=== PATIENT | male | born 1955 | race African-American/Black ===

== ENCOUNTER 2024-07-29 10:54 | Day surgery (SDC) | payer BC, SELFPAY ==
[2024-07-29] VITALS (10 sets, daily range): BP systolic 122–175; BP diastolic 66–94; BMI 23.5
[2024-07-29 12:04] LABS: ALT (SGPT) 18 U/L (0-50); AST (SGOT) 28 U/L (17-59); Albumin 4.8 g/dl (3.5-5.0); Alkaline Phosphatase 65 U/L (38-126); Blood Urea Nitrogen 15 mg/dl (9-20); Calcium 9.7 mg/dl (8.4-10.2); Carbon Dioxide 29 mmol/L (22-30); Chloride 104 mmol/L (98-107); Estimated Creatinine Clearance 70 ml/min; Glucose 95 mg/dl (70-99); Potassium 3.9 mmol/L (3.5-5.1); Sodium 141 mmol/L (135-145); Total Bilirubin 0.9 mg/dl (0.2-1.3); eGFR > 60.00
[2024-07-29 12:20] LABS: Hematocrit 44.5 % (39.0-52.0); Hemoglobin 14.8 g/dL (13.0-18.0); Mean Corp Hgb Conc. 33.3 g/dL (33.0-37.0); Mean Corpuscular Hgb 27.1 pg (27.0-31.0); Mean Corpuscular Volume 81.4 fL (80.0-94.0); Platelet Count 140 10^3/uL (130-400); Red Blood Cell Count 5.47 10^6/uL (4.70-6.10); Red Cell Dist. Width 13.7 % (11.5-14.5); White Blood Cell Count 3.3 10^3/uL (4.8-10.8)
--- NOTE | 2024-07-29 14:18 | ITS.CL.ABL ---
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
Ablation
Procedure Report:
ELECTROPHYSIOLOGY ABLATION REPORT
Date of Procedure: July 29, 2024
Referring: Dr. Mansoor Jamil
INDICATION: History of syncope which by history sounds vasovagal although he was noted to have an elevated PVC burden which is monomorphic and up to 17 beats of tachycardia which were identical to monomorphic PVCs on outpatient monitoring. Normal
ejection fraction by echocardiogram and as he has a stress test and an MRI scheduled for further evaluation.
HISTORY: Presents for EPS to look for sustained tachyarrhythmia and to diagnose site of origin of his PVC.
PROCEDURE:
After informed consent and patient safety timeout the patient was sedated by the anesthesiology service. There was some suppression of his PVCs with sedation requiring lightening of sedation as well as isoproterenol infusion. Under direct vascular
ultrasound guidance to 9 Liberian short sheaths were placed in the right femoral vein and a 5 Liberian short sheath in the right femoral artery which was upgraded to a 35 cm 9 Liberian braided sheath to the descending aorta. The 4 mm ablation catheter
which was irrigated was brought first up from the right femoral vein up into the right atrium for atrial pacing, His bundle recording from the right side and mapping of the right ventricle and right ventricular outflow tract for the clinical PVC.
The clinical PVC was left bundle left inferior with a transition at V2�V3 and somewhat similar to sinus rhythm but wider. We pace map the entire right ventricular outflow tract and only achieved an 84% match between pacing and the clinical
morphology. Activation mapping in the right ventricular outflow tract only achieved 0 to 5 ms pre-QRS particularly closer to the hiss bundle with an RS in the unipolar recording. This was at the area of 84% pace map matching. Intracardiac
ultrasound and 3D mapping were utilized. Intracardiac ultrasound demonstrated normal ejection fraction without pericardial effusion pre and post procedure. We also utilized intracardiac ultrasound to utilize mapping in the right ventricular
outflow tract and above the pulmonic valve and the pulmonary artery. We also utilized this for imaging of the right and left coronary artery trees and catheter position in each of the cusps and the left ventricular outflow tract conduction system.
���The activation map of the right ventricular outflow tract demonstrated a diffuse area of early activation but only 0 to 5 ms suggesting breakthrough from the anterior right ventricular flow tract in the conduction system region. Nonetheless we
then placed a 5 Liberian short sheath in the right femoral artery and upgraded that to a 9 Liberian mid length braided sheath to the descending aorta. We then brought the 4 mm tactic cath up in the pigtail confirmation and mapped the left ventricular
outflow tract below the aortic cusps as well as the aortic cups proper up to the coronary takeoffs. Interestingly there was no area of early activation in the aortic cusps or the left ventricular outflow tract or LV septum. The conduction system
was mapped and tagged showing an area of diffuse His bundle recording and Purkinje fibers and distal left bundle fibers were also tagged. Pacing at the earliest activation site which was 0 to 3 ms demonstrated a narrow PVC which was similar to the
clinical PVC but as stated before significantly or narrow. �Sheaths were placed and IV heparin bolus followed by continuous infusion to maintain ACT at 250-350 seconds.��The MARCELO catheter was positioned within the LV cavity using a retrograde aortic
approach.��The mapping/ablation catheter was then positioned in a similar fasion within the LV and the 3-D map was created first in SR. there was no electroanatomic voltage abnormality in either outflow tract or the left ventricle.��Given diffuse
activation which was relatively on time to the PVC from both sides of the septum and earliest activation from both the right and left sided hiss bundle no ablation was performed in this region as there is likely a mid myocardial focus within the
conduction system and would be high risk to perform ablation for PVC suppression in this region.
We then proceeded to EP study with pacing from the left ventricle at the septal aspect and the lateral aspect towards the base. �Baseline measurements were obtained.��Programmed stimulation was performed.��Pacing from the RVA was performed.��One,
two, and triple extrastimuli were performed from the LV outflow tract and LV septum. �Burst pacing was also performed from the RVA.� The patient was noninducible for any sustained tachyarrhythmia.
COMPLICATIONS: None
SUMMARY: Mid myocardial PVC focus from the proximal conduction system. Noninducible for sustained ventricular tachycardia. Normal ejection fraction intracardiac ultrasound
RECOMMENDATIONS:
1. The patient will get a stress test through Dr. Jamil's office. We have him scheduled for an outpatient cardiac MRI to look for any myocardial scar. We will place him on low-dose Toprol 12.5 mg XL daily to see if he can tolerate and to see if
we have some PVC suppression
2. Will consider outpatient ILR implant if his MRI is unrevealing and if he is noted to have significant myocardial scar plus unexplained syncope then would consider ICD implantation. I will have a discussion with him after testing regarding next
steps.
Copy to: Dr. Mansoor Jamil
--- NOTE | 2024-07-29 15:31 | PTCARENOTE ---
Pt AOx3, no complaints of pain or discomfort. Educated on expected OOB time and bedrest protocols. Oriented to room and unit. Right groin CDI. VSS, call ny within reach.
--- NOTE | 2024-07-29 15:50 | CM ---
Reviewed chart. Met with Mr. Green to review discharge plans. He states prior to admission he reside alone in a spilt level home with ten steps to enter. He states a friend from [place] is staying with him. He states he has three steps to get
to the main area and then four steps to get to bedroom/full bathroom. He states prior to admission he was independent with ambulation and adls. He states he does not have any DME in the home. He states he has a prescription plan and uses [facility]. The discharge plan is to return home when medically stable.
[2024-07-29] MEDS: RESTASIS 0.05% OPHTHALMIC EMULSION 2 DROPS OPHTH (22:32)
[2024-07-29] MEDS: NORVASC 5 MG PO (22:32)
--- NOTE | 2024-07-30 03:00 | PTCARENOTE ---
Pt received at change of shift. NSR on tele with HR 60s. R fem site with small amount of old drainage on dressing unchanged from previous shift, no complications noted. Pt denies CP or dizziness. Ambulating independently in room without
difficulty. Plan of care discussed and pt verbalizes understanding. Call ny within reach.
[2024-07-30 04:33] VITALS: BP 135/73
[2024-07-30 05:40] LABS: Blood Urea Nitrogen 13 mg/dl (9-20); Carbon Dioxide 25 mmol/L (22-30); Chloride 105 mmol/L (98-107); Glucose 106 mg/dl (70-99); Magnesium 1.9 mg/dl (1.6-2.3); Potassium 4.5 mmol/L (3.5-5.1); Sodium 138 mmol/L (135-145)
[2024-07-30 05:50] LABS: Estimated Creatinine Clearance 77 ml/min; eGFR > 60.00
[2024-07-30 06:19] LABS: White Blood Cell Count 5.2 10^3/uL (4.8-10.8)
[2024-07-30 07:00] LABS: Hematocrit 41.1 % (39.0-52.0); Hemoglobin 13.9 g/dL (13.0-18.0); Mean Corp Hgb Conc. 33.8 g/dL (33.0-37.0); Mean Platelet Volume 9.8 fL (7.4-10.4); Platelet Count 147 10^3/uL (130-400); Red Blood Cell Count 5.14 10^6/uL (4.70-6.10); Red Cell Dist. Width 13.6 % (11.5-14.5)
[2024-07-30 07:17] VITALS: BP 136/68
[2024-07-30] MEDS: TOPROL XL 12.5 MG PO (08:16)
--- NOTE | 2024-07-30 08:37 | CM ---
Reviewed chart. Met with Mr. Green to review discharge plans. Received consult for Advanced Directive. Reviewed advanced directive and gave him the form. Prior to admission he resides alone in a spilt- level home with ten steps to enter. He has
a friend from [place] currently staying with him. He has three steps to get to the main area and four steps to get to his bedroom/full bathroom. Prior to admission he was independent with ambulation and adls. He does not have any DME in the
home. He has a prescription plan and uses [facility]. The discharge plan is to return home when medically stable.
--- NOTE | 2024-07-30 08:41 | W.PN.CARDCBS ---
Addendum entered and electronically signed by Yobani Oakley MD 07/30/24 09:35:
Patient seen
Telemetry reviewed
Status post EPS yesterday
No events overnight
Exam:
As per WIRE FENCE BUILDER note assessment
Sinus rhythm with occasional PVCs and couplets encouraged bigeminy on telemetry
Alert and or x 3
Nonfocal neurologically
Cor regular
PCP: Genoveva Miller MD
CDY: Mansoor Jamil MD
Impression:
Symptomatic PVC's
Syncope
post EPS with non inducible sustained VT
HTN
Hyperlipidemia
SUMMARY: Mid myocardial PVC focus from the proximal conduction system. Noninducible for sustained ventricular tachycardia. Normal ejection fraction intracardiac ultrasound
Plan:
post EPS with non inducible VT
groin stable with some scant drainage, soft
tele SR with PVC's and bigeminy
Will add low dose BB, metoprolol xl 12.5mg
Plan for outpt MRI to look for any myocardial scarring and rule out processes such as sarcoidosis or viral myocarditis
NST to r/o ischemia
Will consider ILR if his MRI is negative for scar and if he does have focal or extensive scarred MRI would have to counseled the patient about consideration for ICD implant
f/u Dr. Jamil as scheduled
stable for d/c home today
Original Note:
Today's Communication / Plan
-
stable for d/c home
Impression / Plan
-
PCP: Genoveva Miller MD
CDY: Mansoor Jamil MD
Impression:
Symptomatic PVC's
Syncope
post EPS with non inducible sustained VT
HTN
Hyperlipidemia
SUMMARY: Mid myocardial PVC focus from the proximal conduction system. Noninducible for sustained ventricular tachycardia. Normal ejection fraction intracardiac ultrasound
Plan:
post EPS with non inducible VT
groin stable with some scant drainage, soft
tele SR with PVC's and bigeminy
Will add low dose BB, metoprolol xl 12.5mg
Plan for outpt MRI to look for any myocardial scarring
NST to r/o ischemia
If all negative will plan for Loop recorder to monitor closer
f/u Dr. Jamil as scheduled
stable for d/c home today
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
Subjective
Date of Service: July 30, 2024
denies cp, sob
Objective
Labs:
07/30/24 04:46
07/30/24 04:46
Labs
Hgb 13.9 g/dL (13.0-18.0) 07/30/24 04:46
Hct 41.1 % (39.0-52.0) 07/30/24 04:46
Plt Count 147 10^3/uL (130-400) 07/30/24 04:46
Sodium 138 mmol/L (135-145) 07/30/24 04:46
Potassium 4.5 mmol/L (3.5-5.1) 07/30/24 04:46
BUN 13 mg/dl (9-20) 07/30/24 04:46
Creatinine 1.1 mg/dL (0.7-1.3) 07/30/24 04:46
Glucose 106 mg/dl (70-99) H 07/30/24 04:46
Vital Signs and I&O:
Vital Signs
Temp Pulse Resp BP Pulse Ox
97.3 F 66 20 135/73 100
07/30/24 07:12 07/30/24 04:33 07/30/24 07:12 07/30/24 04:33 07/30/24 07:12
Vital Signs
Temp Pulse Resp BP Pulse Ox
97.3 F 66 20 135/73 100
07/30/24 07:12 07/30/24 04:33 07/30/24 07:12 07/30/24 04:33 07/30/24 07:12
Intake & Output
07/28/24 07/29/24 07/30/24 07/31/24
06:59 06:59 06:59 06:59
Intake Total 360 / 360
Balance 360 / 360
Physical Exam
Physical Exam
NAD< AOX3
S1, S2, RRR
CTAB< non labored, no wheeze
SNTND Bsx4
R fem site scant marked drainage, soft, non tender
[2024-07-30] MEDS: TYLENOL 650 MG PO (10:06)
--- NOTE | 2024-07-30 10:55 | PTCARENOTE ---
Pt c/o headache, rated 2/10, med with Tylenol with some relief noted, pt also c/o nasal irritation.
--- NOTE | 2024-07-30 15:07 | W.DS.TRANS ---
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
-
Discharge Instructions:
Discharge Diagnosis/Procedures Ventricular tachycardia post EP study
Diet Low Cholesterol
Driving Restrictions No driving for 24 hours
Instructions:
Stand-Alone Forms: DC Instructions- Cath/EP Lab
Changes to Home Medications: Yes
Discharge Medications:
DC Medications w/original date entered in [facility] [facility]
amlodipine 5 mg tablet 5 mg PO HS 07/29/24
cyclosporine 0.05 % eye drops in a dropperette (Restasis) 2 drp ophthalmic (eye) HS 07/29/24
metoprolol succinate 25 mg tablet,extended release 24 hr 12.5 mg (1/2 x 25 mg) PO DAILY #90 tabs 07/30/24
Home Medication Changes
new to metoprolol
Pending Results: No
== END 2024-07-30 11:00 | disposition home or self-care (01) ==
LOC: CATH 10:54
PROVIDERS: Nurse Practitioner Adult Health; ATTENDING PHYSICIAN Internal Medicine Cardiovascular Disease; FAMILY PHYSICIAN Family Medicine; OTHER PHYSICIAN Internal Medicine Cardiovascular Disease
DX: I47.20 Ventricular tachycardia, unspecified (principal); I10 Essential (primary) hypertension; E78.5 Hyperlipidemia, unspecified; R55 Syncope and collapse; I49.3 Ventricular premature depolarization; I25.2 Old myocardial infarction; R00.8 Other abnormalities of heart beat; Z79.899 Other long term (current) drug therapy
CPT/HCPCS: 93620; 93662; 93622; C1769; C1894; C2630; C1892; C1759; 80048; 80053; 83735; 85027; 85347; 93005; 93613